=== PATIENT | male | born 1985 | race Caucasian/White ===

== ENCOUNTER 2025-07-14 00:31 | Inpatient (IN) | payer MEDICAID, OTHER ==
[~2025-07-14] VITALS: Ht 170.2 cm; Wt 72.1 kg
[2025-07-14 02:12] LABS: PLATELET COUNT (AUTO) 241 K/uL (150-450); RED BLOOD CELL COUNT(AUTO) 4.50 MIL/uL (4.50-5.90); RED CELL DISTRIBUTION WIDTH 12.9 % (11.5-14.5); WHITE BLOOD COUNT (AUTO) 5.9 K/uL (4.5-11.0)
[2025-07-14 02:16] LABS: COVID AG,FIA SOURCE NASAL SWAB
[2025-07-14 02:21] LABS: CALCIUM, TOTAL 8.7 mg/dL (8.8-10.5); CREATININE 0.90 mg/dL (0.60-1.30); GLOMERULAR FILTR. RATE CALC > 60 mL/min (>60); GLUCOSE,RANDOM 90 mg/dL (70-110); SODIUM SERUM 138 mmol/L (136-145); UREA NITROGEN, BLOOD 14 mg/dL (7-18)
[2025-07-14 02:41] LABS: SARS-COV2 (COVID) ANTIGEN,FIA Negative (Negative)
[2025-07-14 03:56] VITALS: O2SAT 99
[2025-07-14 05:50] VITALS: BP 113/70; PULSE 65; RESP 16; TEMP 98.5; O2SAT 98
[2025-07-14] MEDS ORDERED: MAGNESIUM HYDROXIDE SUSPENSION 30 ML UDCUP PO PRN (06:15)
[2025-07-14] MEDS ORDERED: DOCUSATE SODIUM 100 MG CAPSULE PO PRN (06:15)
[2025-07-14] MEDS ORDERED: ACETAMINOPHEN 325 MG TABLET PO PRN (06:15)
[2025-07-14] MEDS ORDERED: GuaiFENesin/D-METHORPHAN [SUGAR-FREE] 200-20MG/10 ML SYRUP UDCUP PO PRN (06:15)
[2025-07-14] MEDS ORDERED: LOPERAMIDE HCL 2 MG CAPSULE PO PRN (06:15)
[2025-07-14] MEDS ORDERED: NICOTINE 14 MG/24 HOUR PATCH TD PRN (06:15)
[2025-07-14] MEDS ORDERED: ONDANSETRON 4 MG TABLET PO PRN (06:15)
[2025-07-14] MEDS ORDERED: PETROLATUM,WHITE 28 GM JELLY TP PRN (06:15)
[2025-07-14] MEDS ORDERED: IBUPROFEN 400 MG TABLET PO PRN (06:15)
[2025-07-14] MEDS ORDERED: MAG HYDROX/ALUMINUM HYD/SIMETH ES 30 ML SUSPENSION UDCUP PO PRN (06:15)
[2025-07-14] MEDS ORDERED: ALBUTEROL SULFATE HFA 90 MCG/PUFF 8 GM INHALER IH PRN (06:15)
[2025-07-14 08:42] VITALS: BP 101/63; PULSE 55; RESP 17; TEMP 98.1; O2SAT 96
[2025-07-14] MEDS: BICTEGRAV/EMTRICIT/TENOFOV ALA 50-200-25 MG TABLET PO SCH (09:15)
[2025-07-14] MEDS ORDERED: CITALOPRAM HYDROBROMIDE 10 MG TABLET PO SCH (11:00)
[2025-07-14] MEDS: CITALOPRAM HYDROBROMIDE 10 MG TABLET PO SCH (11:32)
[2025-07-14] MEDS ORDERED: INFLUENZA VIRUS VACCINE TVS (6MO+) 2025-26/PF 45 MCG/0.5 ML SYRINGE IM. ONE (11:45)
[2025-07-14 20:27] VITALS: BP 104/68; PULSE 89; RESP 17; TEMP 97.8; O2SAT 98
[2025-07-15 08:37] LABS: PLATELET COUNT (AUTO) 255 K/uL (150-450); RED BLOOD CELL COUNT(AUTO) 4.78 MIL/uL (4.50-5.90); RED CELL DISTRIBUTION WIDTH 13.1 % (11.5-14.5); WHITE BLOOD COUNT (AUTO) 6.2 K/uL (4.5-11.0)
[2025-07-15 09:07] VITALS: RESP 16
[2025-07-15 09:08] LABS: ASPARTATE AMINOTRANSFERASE 17 U/L (15-37); CALCIUM, TOTAL 8.9 mg/dL (8.8-10.5); CREATININE 0.88 mg/dL (0.60-1.30); GLOMERULAR FILTR. RATE CALC > 60 mL/min (>60); GLUCOSE,RANDOM 83 mg/dL (70-110); SODIUM SERUM 137 mmol/L (136-145); TOTAL PROTEIN, SERUM 7.6 g/dL (6.4-8.2); UREA NITROGEN, BLOOD 16 mg/dL (7-18)
[2025-07-15 10:07] LABS: CHOL/HDL RATIO 3.3 (4.2-7.3); LDL CHOL (CALC.) 62.0 mg/dL (0-130)
[2025-07-15 20:21] VITALS: BP 125/85; PULSE 70; RESP 17; TEMP 98.2; O2SAT 100
[2025-07-16 08:24] VITALS: BP 113/63; PULSE 61; RESP 17; TEMP 97.2; O2SAT 99
[2025-07-16 20:24] VITALS: BP 101/64; PULSE 99; RESP 18; TEMP 99.3; O2SAT 98
[2025-07-16] MEDS: ZOLPIDEM TARTRATE 10 MG TABLET PO PRN (22:31)
[2025-07-17 08:50] VITALS: BP 117/67; PULSE 61; RESP 17; TEMP 98.2; O2SAT 99
[2025-07-17 09:13] LABS: APPEARANCE,URINE CLEAR (CLEAR); GLUCOSE, URINE (UA) NEGATIVE (NEGATIVE); LEUKOCYTE ESTERASE ,URINE NEGATIVE (NEGATIVE); NITRATE,URINE NEGATIVE (NEGATIVE); OCCULT BLOOD,URINE NEGATIVE (NEGATIVE); PH,URINE DRUG SCREEN 6.0 (5.0-8.0); SPECIFIC GRAVITIY, URINE 1.022 (1.003-1.030)
[2025-07-17 09:35] LABS: ALCOHOL, URINE DRUG SCREEN NEGATIVE (NEGATIVE); AMPHET/METH SCREEN,URINE POSITIVE (NEGATIVE); BARBITURATE SCREEN, URINE NEGATIVE (NEGATIVE); CANNABINOID SCREEN,URINE NEGATIVE (NEGATIVE); COCAINE SCREEN,URINE NEGATIVE (NEGATIVE); METHADONE SCREEN, URINE NEGATIVE (NEGATIVE)
[2025-07-17 20:01] VITALS: BP 132/84; PULSE 88; RESP 17; TEMP 98.2; O2SAT 97
[2025-07-18 08:00] VITALS: BP 100/70; PULSE 60; RESP 17; TEMP 98.2; O2SAT 100
[2025-07-18] MEDS ORDERED: BICT1TAB PO (11:20)
[2025-07-18] MEDS ORDERED: CITA10TA99 PO (11:20)
== END 2025-07-18 15:15 | disposition home or self-care (01) | DRG 751 ==
LOC: EMS 00:31 → B2S 03:08
PROVIDERS: ADMIT Psychiatry & Neurology Child & Adolescent Psychiatry; ATTEND Psychiatry & Neurology Child & Adolescent Psychiatry
PROC: GZ58ZZZ Individual Psychotherapy, Cognitive-Behavioral (ICD-10-PCS; 2025-07-14)
PROC: GZ56ZZZ Individual Psychotherapy, Supportive (ICD-10-PCS; 2025-07-14)
PROC: GZHZZZZ Group Psychotherapy (ICD-10-PCS; principal; 2025-07-16)
DX: F33.2 Major depressive disorder, recurrent severe without psychotic features (principal); R45.851 Suicidal ideations; F41.9 Anxiety disorder, unspecified; G47.00 Insomnia, unspecified; Z20.822 Contact with and (suspected) exposure to COVID-19; I10 Essential (primary) hypertension; Z79.899 Other long term (current) drug therapy
CPT/HCPCS: 80048; 80053; 80061; 80307; 81003; 83036; 84443; 85025; 99285; G0480